=== PATIENT | female | born 1990 | race Caucasian/White ===

== ENCOUNTER 2016-08-21 19:08 | Observation (INO) | payer OTHER ==
[~2016-08-21] VITALS: Ht 167.6 cm; Wt 116.6 kg
[2016-08-21] MEDS ORDERED: Lactated Ringer's 1,000 ML IV PRN (20:37)
[2016-08-21] MEDS ORDERED: Methylergonovine 0.2 mg/mL Inj IM PRN (20:40)
[2016-08-21] MEDS ORDERED: Oxytocin 10 Unit/mL Inj IM PRN (20:40)
[2016-08-21] MEDS ORDERED: Oxytocin 30 Units/500 mL LR 30 UNITS in IV Premix 1 EACH IV PRN (20:40)
[2016-08-21] MEDS ORDERED: Hemorrhage Kit, Post Partum XX ONE (20:40)
[2016-08-21] MEDS ORDERED: Sodium Chloride LOK Flush 10 mL Syringe IVFLUSH PRN (20:40)
[2016-08-21] MEDS ORDERED: Carboprost 250 mCg/mL Inj IM PRN (20:40)
[2016-08-21] MEDS ORDERED: Ondansetron 2 mg/mL 2 mL Inj IVPUSH PRN (20:40)
[2016-08-21] MEDS ORDERED: PNV1TABL81 PO (20:41)
[2016-08-21] MEDS ORDERED: OMEP20CA11 PO (20:41)
[2016-08-21 21:35] LABS: Mean Corpuscular Hemoglobin 29.2 pg (27.0-35.0); Mean Corpuscular Volume 86.7 fL (81-100)
[2016-08-22] MEDS ORDERED: Multivit-Miner-Folic Acid-Iron Tablet PO SCH (08:00)
[2016-08-22] MEDS ORDERED: Pantoprazole 20 mg ER24 Tablet PO SCH (08:30)
[2016-08-23] MEDS ORDERED: Misoprostol 25 mCg/0.25 Tablet VAGINAL ONE (01:55)
--- NOTE | 2016-08-23 07:37 | PCM.PNOBIP ---
Subjective Date of Service Aug 23, 2016 Delivery plan: Spontaneous Vaginal Delivery Visit History Patient is now at 41 1/7 weeks EGA, here for post-dates induction. She has received 2 doses of cervidil and 1 dose of misoprostol. She is currently without complaints. Pain Management: No or Minimal Pain Labs Laboratory Tests 08/21/16 21:15: White Blood Count 14.0, Red Blood Count 4.14, Hemoglobin 12.1, Hematocrit 35.9, Mean Corpuscular Volume 86.7, Mean Corpuscular Hemoglobin 29.2, Mean Corpuscular Hemoglobin Concent 33.7, Red Cell Distribution Width 13.5, Platelet Count 311 Exam Vital Signs Vital Signs Contraction frequency in minutes: MVUs: Vital Signs: VS reviewed, stable Heart Tracings Heart Tones Baseline bpm Heart Rate Category: I Tocometry/IUPC Contraction frequency in minutes: MVUs: Sterile Vaginal Exam medium consistency, mid-position Cervical Dilation: 0 cm (fingertip external os) Cervical Effacement: 50 % Station: -3 Exam General: Alert, Oriented X3, Cooperative OB Intrapartum Assessment/Plan Assessment Post-dates induction with minimal progress. Reassuring monitoring. Problems: (1) 41 weeks gestation of Plan: Failed elective induction. Will discharge home. Return on 08/26/16, for repeat induction. Status: Acute ICD Code: O48.0 Kapil Valencia MD Aug 23, 2016 07:37
--- NOTE | 2016-08-23 07:41 | PCM.DC.OB ---
Obstetrical Discharge Summary Date of Service Aug 23, 2016 Date of hospital admission Aug 21, 2016 at 19:15 Date of Discharge: Aug 23, 2016 Providers Admitting Physician: Kapil Valencia MD Primary Care Physician: Kapil Valencia MD Attending Physician: Kapil Valencia MD Problems: (1) 41 weeks gestation of Status: Acute ICD Code: O48.0 Brief History and Physical: 25 yo , admitted at 40 6/7 weeks EGA, for elective post-dates induction. Hospital Course: Patient received 2 doses of Cervidil and 1 dose of intravaginal misoprostol. Minimal cervical change noted. Reassuring monitoring throughout her hospital course. Options were discussed and it was elected to discontinue induction and resume on 08/26/16. Omeprazole (Omeprazole) 20 Mg Capsule.dr 20 MG PO DAILY (Reported) Last Taken: Unknown Dose on 08/21/16 0900 Pnv No.122/Iron/Folic Acid ( Multi Tablet) 27 Mg Iron-800 Mcg Tablet 1 EACH PO (Reported) Last Taken: Unknown Dose on 08/21/16 0900 Disposition Home Follow-up plan 3 days Discharge Diet: No restrictions Discharge Activity-General: No restrictions Kapil Valencia MD Aug 23, 2016 07:41
--- NOTE | 2016-08-23 07:43 | PCM.DIOB ---
Obstetrical Disch Instruction Date of Service: Aug 23, 2016 Dates of Hospitalization Date of Hospital Admission Aug 21, 2016 at 19:15 Providers Admitting Physician: Kapil Valencia MD Primary Care Physician: Kapil Valencia MD Attending Physician: Kapil Valencia MD Discharge Diagnosis Discharge Diagnosis Failed elective post-dates labor induction. Problems: (1) 41 weeks gestation of Status: Acute ICD Code: O48.0 Diet Discharge Diet: No restrictions Activity Discharge Activity-General: No restrictions Follow Up Plan Follow Up Plan [facility], for repeat induction Follow-up Provider (F9): Kapil Valencia MD Follow-up appointment: Days (3) Kapil Valencia MD Aug 23, 2016 07:43
== END 2016-08-23 08:37 | disposition home or self-care (01) ==
LOC: FBCO 19:08 → INTOOBSV 19:15 → FBC 19:15
PROVIDERS: ADMIT Family Medicine; ATTEND Family Medicine
DX: O48.0 Post-term pregnancy (principal); O61.0 Failed medical induction of labor; Z3A.40 40 weeks gestation of pregnancy
CPT/HCPCS: 36415; 85027; G0378; G0463; J7120

== ENCOUNTER 2016-08-26 00:17 | Inpatient (IN) | payer OTHER ==
[~2016-08-26] VITALS: Ht 167.6 cm; Wt 117.0 kg
[~2016-08-26 00:17] MED LIST: OMEP20CA11 PO; PNV1TABL81 PO
[2016-08-26] MEDS ORDERED: Carboprost 250 mCg/mL Inj IM PRN (07:40)
[2016-08-26] MEDS ORDERED: Methylergonovine 0.2 mg/mL Inj IM PRN (07:40)
[2016-08-26] MEDS ORDERED: Oxytocin 10 Unit/mL Inj IM PRN (07:40)
[2016-08-26] MEDS ORDERED: Ondansetron 2 mg/mL 2 mL Inj IVPUSH PRN (07:40)
[2016-08-26] MEDS ORDERED: fentaNYL-PF 50 mCg/mL 2 mL Inj IVPUSH PRN (07:40)
[2016-08-26] MEDS ORDERED: Sodium Chloride LOK Flush 10 mL Syringe IVFLUSH PRN (07:40)
[2016-08-26] MEDS ORDERED: Hemorrhage Kit, Post Partum XX ONE (07:40)
[2016-08-26] MEDS ORDERED: Oxytocin 30 Units/500 mL LR 30 UNITS in IV Premix 1 EACH IV PRN (07:40)
[2016-08-26] MEDS: Lactated Ringer's 1,000 ML IV SCH ×3 (07:50→23:50)
[2016-08-26] MEDS: Lactated Ringer's 1,000 ML IV PRN ×2 (08:27→21:52)
[2016-08-26] MEDS: Oxytocin 30 Units/500 mL LR 30 UNITS in IV Premix 1 EACH IV PRN ×2 (08:28→22:36)
[2016-08-26 08:43] LABS: Mean Corpuscular Hemoglobin 29.2 pg (27.0-35.0); Mean Corpuscular Volume 87.7 fL (81-100)
[2016-08-26] MEDS: Misoprostol 25 mCg/0.25 Tablet VAGINAL SCH ×4 (10:00→21:35)
[2016-08-27] MEDS: Misoprostol 25 mCg/0.25 Tablet VAGINAL SCH ×6 (01:35→21:35)
[2016-08-27] MEDS: Lactated Ringer's 1,000 ML IV SCH ×11 (02:39→23:50)
[2016-08-27] MEDS ORDERED: Lactated Ringer's 500 ML IV ONE (08:53)
--- NOTE | 2016-08-27 08:53 | PCM.HPANE ---
Patient Data Surgeon Admitting Provider:Kapil Valencia MD Attending Provider:Kapil Valencia MD Primary Care Physician:Kapil Valencia MD Other Provider:Matthias Marmolejo Anesthesia Reason for Visit Induction INDUCTION Ht/WT & BMI Body Mass Index Allergies Coded Allergies: No Known Allergies (Unverified , 08/21/16) Medications Reported Medications Omeprazole 20 Mg Capsule.dr20 Mg PO DAILY Ref 0 08/21/16 Pnv No.122/Iron/Folic Acid ( Multi Tablet)27 Mg Iron-800 Mcg Tablet1 Each PO 08/21/16 History Smoking Status: Never Smoker Stop/Bang Risk Assessment Category Category 1A: Patient has history of documented sleep apnea, and HAS NOT received any narcotic, sedative or anesthesia administration during this stay. Category 1B: Patient has history of documented sleep apnea, and HAS received any narcotic , sedative or anesthesia administration during this stay Category 2: Patient has SUSPECTED Obstructive Sleep Apnea, and HAS received any narcotic , sedative or anesthesia administration during this stay. Category 3: Patient has SUSPECTED Obstructive Sleep Apnea and HAS NOT received narcotic, sedative or anesthesia administration during this stay. Category 4: Outpatient in Procedural Areas with known sleep apnea or who screen positive for High Risk via the STOP/BANG questionnaire. Exam Exam General Appearance: Alert, Oriented X3, Cooperative HEENT/AIRWAY: MP 2, Neck Movement (from), Mouth Opening (wnl) Lungs: Clear to Auscultation Heart: Exam Unremarkable Meds/Labs/Diagnostics Admission Meds Current Medications Lactated Ringer's (Lr) 1,000 ml @ 125 mls/hr Q8H IV Last administered on 07:47; Start 08/26/16 at 09:34 Misoprostol (Cytotec) 25 mcg Q4H VAGINAL Last administered on 08/26/16 14:09; Start 08/26/16 at 09:35 Labs Test 08/26/16 08:15 White Blood Count 11.0th/mm3 (3.8-10.1) Red Blood Count 4.15mil/mm3 (3.90-5.20) Hemoglobin 12.1g/dL (12.0-15.6) Hematocrit 36.4% (35.0-46.0) Mean Corpuscular Volume 87.7fL (81-100) Mean Corpuscular Hemoglobin 29.2pg (27.0-35.0) Mean Corpuscular Hemoglobin Concent 33.2% (32.0-37.0) Red Cell Distribution Width 13.6% (12.3-15.4) Platelet Count 294bil/L (150-400) Plan Impression Patient chart reviewed, patient interviewed and anesthestic plan with risks, benefits, and alternatives discussed, and informed consent obtained. ASA Physical Status: ASA3 Severe Disease Anesthetic Plan: Epidural Bene/Risks/Altern/Consents: Yes HP Complete Prior to Induction: Yes Alvarez Borden MD Aug 27, 2016 08:53
[2016-08-27] MEDS ORDERED: Atropine 1 mg/10 mL (Code) Syringe IVPUSH PRN (08:55)
[2016-08-27] MEDS ORDERED: Ondansetron 2 mg/mL 2 mL Inj IVPUSH PRN (08:55)
[2016-08-27] MEDS ORDERED: EPHEDrine Sulfate 50 mg/mL Inj IVPUSH PRN (08:55)
[2016-08-27] MEDS ORDERED: fentaNYL 2 mCg/mL-Bupiv 0.125% 100 ML EPIDURAL SCH (08:55)
--- NOTE | 2016-08-27 09:28 | PCM.ANEP1 ---
Post Anesthesia Phase 1 PACU Phase 1 Assessment Anesthetic Administered: Epidural Level of Alertness: Awake, talking LAKHANI's with Equal Strength: Yes Pain: Yes Nausea or Vomiting: No Oxygen Delivery: Room Air Lungs: Normal Air Movement Dermatome Level: T10 (Umbilicus) Alvarez Borden MD Aug 27, 2016 09:28
--- NOTE | 2016-08-27 19:32 | PCM.OBVAG ---
Vaginal Delivery Date of Service Aug 27, 2016 Pre Operative Diagnosis Pre Operative Diagnosis Post-dates gestation labor induction Post Operative Diagnosis Post Operative Diagnosis Post dates gestation, delivered Procedure Obstetical Procedure: Normal Spontaneous Vaginal Delivery, Repair of Perineal Tear (2nd degree (2-O Vicryl in running fashion)) Director Workers Compensation/Sr. Logistics Analyst Provider and Sr. Logistics Analyst: Kapil Valencia MD Indication for Procedure Induction: Induction of labor (misoprostol followed by oxytocin), SROM (clear fluid) Findings Obstetrical Findings: Williamson (Male), Cord (3 Vessel), Weight ( 9 lbs 9 oz), Presentation (Vertex), 1 minute (9), 5 minutes (10), Placenta ( Intact/Normal), Perineal Laceration (2nd degree) Analgesia/Medications Obstetrical Anesthesia: Epidural Procedure Details Procedure Details 25yo , admitted at 41 4/7 weeks EGA for post-dates induction. Slow progression of labor with initial misoprostol induction followed by oxytocin. There was a prolonged deceleration during oxytocin administration, which responded to standard resuscitative measures. No recurrence of decelerations. Patient pushed without difficulty, delivering via uncomplicated . Blood Loss & Administration Estimated Blood Loss: 300 Post Procedure Plan Post delivery Condition: Mom stable, Baby stable to nursery Kapil Valencia MD Aug 27, 2016 19:31
[2016-08-27] MEDS ORDERED: Methylergonovine 0.2 mg/mL Inj IM PRN (19:40)
[2016-08-27] MEDS ORDERED: Oxytocin 30 Units/500 mL LR 30 UNITS in IV Premix 1 EACH IV PRN (19:40)
[2016-08-27] MEDS ORDERED: Benzocaine (Dermoplast) 20% 60 Gm Spray TOPICAL PRN (19:40)
[2016-08-27] MEDS ORDERED: HYDROcodone-APAP 5-325 mg Tablet PO PRN (19:40)
[2016-08-27] MEDS ORDERED: Carboprost 250 mCg/mL Inj IM PRN (19:40)
[2016-08-27] MEDS ORDERED: LANOlin HPA 7 Gm Ointment TOPICAL PRN (19:40)
[2016-08-27] MEDS ORDERED: Hemorrhage Kit, Post Partum XX ONE (19:40)
[2016-08-27] MEDS ORDERED: Witch Hazel-Glycerin Pads TOPICAL PRN (19:40)
[2016-08-27] MEDS ORDERED: Oxytocin 10 Unit/mL Inj IM PRN (19:40)
[2016-08-28] MEDS: Lactated Ringer's 1,000 ML IV SCH ×10 (00:53→19:36)
[2016-08-28] MEDS: Misoprostol 25 mCg/0.25 Tablet VAGINAL SCH ×5 (01:35→17:35)
--- NOTE | 2016-08-28 05:22 | PCM.ANEP2 ---
Post Anesthesia Evaluation ASA/CMS Post Anesthesia VS in Patient's Normal Range?: Yes Resp Stable; Airway Patent?: Yes CV Function & Hydration Stable: Yes Mental Status Recovered?: Yes Pain control Satisfactory?: Yes N/V Control Satisfactory?: Yes Alvarez Borden MD Aug 28, 2016 05:22
[2016-08-28 07:37] LABS: Mean Corpuscular Volume 87.8 fL (81-100)
--- NOTE | 2016-08-28 19:15 | PCM.PNOBPP ---
Subjective Date of Service Aug 28, 2016 Visit History PPD#1 Subjective Feeling well. Lochia: Normal Pain Management: Good Pain Control, No or Minimal Pain Gastrointestinal: Good Appetite Postop Activity: Ambulating Independently Labs Laboratory Tests 08/28/16 07:07: White Blood Count 22.4, Red Blood Count 3.52, Hemoglobin 10.2, Hematocrit 30.9, Mean Corpuscular Volume 87.8, Mean Corpuscular Hemoglobin 29.0, Mean Corpuscular Hemoglobin Concent 33.0, Red Cell Distribution Width 14.1, Platelet Count 266 Exam Vital Signs Vital Signs: VS reviewed, stable Exam Abdomen: Uterus is (U+1), Fundus firm, Abdomen soft, Abdomen non-tender, Abdomen non-distended Perineum: Laceration : Voiding without difficulty Extremities: No cords, No tenderness/swelling Lungs: Clear to Auscultation, Normal Air Movement Heart: Normal S1, Normal S2, No Murmurs/Rubs/Gallops General: Alert, Oriented X3, Cooperative, No Acute Distress OB Post Assessment/Plan Assessment PPD#1 -- doing well Problems: (1) normal course Status: Acute ICD Code: Z39.2 (2) 41 weeks gestation of Status: Acute ICD Code: O48.0 (3) Spontaneous vaginal delivery Status: Acute ICD Code: O80 Pain Evaluation: Adequate Pain Control Post plan: Anticipate discharge home today Kapil Valencia MD Aug 28, 2016 19:15
--- NOTE | 2016-08-28 19:19 | PCM.DC.OB ---
Obstetrical Discharge Summary Date of Service Aug 28, 2016 Date of hospital admission Aug 26, 2016 at 07:00 Date of Discharge: Aug 28, 2016 Providers Admitting Physician: Kapil Valencia MD Primary Care Physician: Kapil Valencia MD Attending Physician: Kapil Valencia MD Problems: (1) normal course Status: Acute ICD Code: Z39.2 (2) 41 weeks gestation of Status: Acute ICD Code: O48.0 (3) Spontaneous vaginal delivery Status: Acute ICD Code: O80 Brief History and Physical: 25yo , admitted at 41 4/7 weeks EGA for post-dates labor induction. Hospital Course: Patient progressed slowly through induction and ultimately delivered via uncomplicated spontaneous vaginal delivery. She had a 2nd degree midline perineal laceration that was repaired in running fashion. She had an uncomplicated course. Omeprazole (Omeprazole) 20 Mg Capsule.dr 20 MG PO DAILY (Reported) Pnv No.122/Iron/Folic Acid ( Multi Tablet) 27 Mg Iron-800 Mcg Tablet 1 EACH PO (Reported) Disposition Home Follow-up plan 6 weeks Discharge Diet: No restrictions Discharge Activity-General: Pelvic Rest for 6 weeks Kapil Valencia MD Aug 28, 2016 19:19
--- NOTE | 2016-08-28 19:21 | PCM.DIOB ---
Obstetrical Disch Instruction Date of Service: Aug 28, 2016 Dates of Hospitalization Date of Hospital Admission Aug 26, 2016 at 07:00 Providers Admitting Physician: Kapil Valencia MD Primary Care Physician: Kapil Valencia MD Attending Physician: Kapil Valencia MD Discharge Diagnosis Problems: (1) normal course Status: Resolved ICD Code: Z39.2 (2) 41 weeks gestation of Status: Resolved ICD Code: O48.0 (3) Spontaneous vaginal delivery Status: Resolved ICD Code: O80 Diet Discharge Diet: No restrictions Activity Discharge Activity-General: Pelvic Rest for 6 weeks Dressing and Incisional Care Hygiene: May shower Follow Up Plan Follow-up Provider (F9): Kapil Valencia MD Follow-up appointment: Weeks (6) Call your provider for: Fever or Chills, Shortness of breath, Heavy vaginal bleeding, Epigastric pain, Excessive constipation, Vaginal discomfort, Red painful breasts Kapil Valencia MD Aug 28, 2016 19:21
[2016-08-28 19:59] VITALS: BP 122/72; PULSE 74; RESP 18
== END 2016-08-28 21:18 | disposition home or self-care (01) | DRG 775 ==
LOC: FBC 07:00
PROVIDERS: ADMIT Family Medicine; ATTEND Family Medicine
PROC: 3E033VJ Introduction of Other Hormone into Peripheral Vein, Percutaneous Approach (ICD-10-PCS; 2016-08-26)
PROC: 10E0XZZ Delivery of Products of Conception, External Approach (ICD-10-PCS; principal; 2016-08-27)
PROC: 0KQM0ZZ Repair Perineum Muscle, Open Approach (ICD-10-PCS; 2016-08-27)
DX: O48.0 Post-term pregnancy (principal); O70.1 Second degree perineal laceration during delivery; Z3A.41 41 weeks gestation of pregnancy; Z37.0 Single live birth